=== PATIENT | male | born 1980 | race Caucasian/White ===

== ENCOUNTER 2016-05-21 13:44 | Outpatient (CLI) | payer BC | END 2016-05-21 13:45 | disposition home or self-care (01) | DX: B34.9 Viral infection, unspecified (principal); H81.49 Vertigo of central origin, unspecified ear; R42 Dizziness and giddiness; K21.9 Gastro-esophageal reflux disease without esophagitis; R10.9 Unspecified abdominal pain ==

== ENCOUNTER 2023-09-05 08:00 | Outpatient (CLI) | payer BC ==
--- NOTE | 2023-09-05 12:26 | XRAY Report ---
PROCEDURE: Chest 2V INDICATIONS: SMOKE INHALATION TECHNIQUE: 2 views of the chest were acquired. COMPARISON: None. FINDINGS: Surgical changes and devices: None. Lungs and pleura: No pleural effusions or pneumothorax. Lungs are clear. Mediastinum: Mediastinal contours appear normal. Heart size is normal. Bones and chest wall: No suspicious bony lesions. Overlying soft tissues appear unremarkable. IMPRESSION: No acute cardiopulmonary process. Reviewed by: Solomon La MD on 09/05/2023 12:24 PM PDT Approved by: Solomon La MD on 09/05/2023 12:24 PM PDT Station ID: [id number]
== END 2023-09-05 23:59 | disposition home or self-care (01) ==
LOC: DI.S 08:00
PROVIDERS: ATTEND Physician Assistant Medical
DX: T59.814A Toxic effect of smoke, undetermined, initial encounter (principal); J70.5 Respiratory conditions due to smoke inhalation